=== PATIENT | female | born 1970 | race Caucasian/White ===

== ENCOUNTER 2017-07-23 00:55 | Emergency (ER) | payer SELFPAY ==
[~2017-07-23] VITALS: Ht 165.1 cm; Wt 79.8 kg
[~2017-07-23 00:55] MED LIST: ALBUTEROL MININEB NEB; ALBUTEROL17 GM NEB; ASPIRIN81 MG PO; COMBIVIR TABLET1 TAB PO; CORDARONE200 M1 PO; FIORINAL 50-321 EACH PO; IMITREX25 MG PO; LEXAPRO PO; NAPROSYN500 MG PO; NICOTINE TRANSD21 MG EXT; PHENERGAN25 M1 PO; VICODIN 5/1 TAB 5/50 PO; VOLTAREN75 MG PO; ZITHROMAX PO
[2017-07-26 07:28] LABS: CHLAMYDIA TRACH Not Detected (Not Detected); N GONOR Detected (Not Detected)
== END 2017-07-23 03:34 | disposition home or self-care (01) ==
LOC: CED 00:55
PROVIDERS: Emergency Medicine
DX: R51 Headache (principal); N89.8 Other specified noninflammatory disorders of vagina; I10 Essential (primary) hypertension; J45.909 Unspecified asthma, uncomplicated; F17.200 Nicotine dependence, unspecified, uncomplicated; Z88.5 Allergy status to narcotic agent; Z79.82 Long term (current) use of aspirin; Z79.899 Other long term (current) drug therapy
CPT/HCPCS: 84703; 87491; 87591; 87808; 87905; 96372; 99284; J0696; J1100; J1200; J1885; J2765